=== PATIENT | male | born 1970 | race Caucasian/White ===

== ENCOUNTER 2018-04-20 02:05 | Emergency (ER) | payer BC ==
--- NOTE | 2018-04-20 02:51 | EDM.PDOC ---
ED HPI GENERAL MEDICAL PROBLEM - General Chief Complaint: Genitourinary Problem Stated Complaint: ENLARGED SCROTUM Time Seen by Provider: 04/20/18 02:33 - History of Present Illness INITIAL COMMENTS - FREE TEXT/NARRATIVE: HISTORY AND PHYSICAL: History of present illness: The patient is a 47-year-old male who presents for reevaluation of a firm area at the inferior aspect of the left hemiscrotum and increased scrotal swelling overall. Patient said he noticed this lump/nodular area and went to [facility] [facility] and they did not have ultrasound capabilities. He was placed on Cipro and Salt Flat for pain. He was advised that if the area continued swelling that he would need an ultrasound. The patient tells me that the hardened area/lump at the inferior aspect of the scrotum skin has not changed in size or discomfort but now he feels like the entire scrotal area is now swollen and more tender on the left side. He doesn't have any dysuria frequency or flank pain no suprapubic pain or abdominal pain no fevers chills nausea or vomiting. He does have a history of a mildly enlarged prostate for which she takes medications. He is unsure why he was placed on the Cipro by the provider into a yoga. Review of systems: As per history of present illness and below otherwise all systems reviewed and negative. Past medical history: As per history of present illness and as reviewed below otherwise noncontributory. Surgical history: As per history of present illness and as reviewed below otherwise noncontributory. Social history: No reported history of drug or alcohol abuse. Family history: As per history of present illness and as reviewed below otherwise noncontributory. Physical exam: General: Well-developed well-nourished overweight man who is nontoxic and moves easily in ED. Vital signs are noted by me HEENT: Atraumatic, normocephalic, negative for conjunctival pallor or scleral icterus, mucous membranes moist, throat clear, neck supple, nontender, trachea midline. Lungs: Clear to auscultation, breath sounds equal bilaterally, chest nontender. Heart: S1S2, regular rate and rhythm no overt murmurs Abdomen: Soft, nondistended, nontender. Negative for masses or hepatosplenomegaly. NABS Pelvis: Stable nontender. Genitourinary: There is no inguinal adenopathy or gross hernial defect appreciated and no tenderness in the inguinal area or suprapubic area. Testicles are descended bilaterally and there is a normal lie. Cremasteric reflexes intact bilaterally and there is symmetrical enlargement of the scrotum without lesions erythema or fluctuance. There is some mild tenderness at palpation of the inferior aspect of the left hemiscrotal skin and very inferiorly and posteriorly at the scrotal skin on the left side there is an ovoid area of firm nodular tissue appreciated without redness fluctuance or gross tenderness. There is no perianal tenderness or fluctuance or redness appreciated. There are no skin defects appreciated and there is no gross asymmetry of the entire anatomy. There was tenderness with palpation of the inferior aspect of the hemiscrotal skin and testicle but there are no testicular masses appreciated. Rectal: Deferred. Extremities: Atraumatic, full range of motion without defects or deficits Neurovascular unremarkable. Neuro: Awake, alert, oriented. Cranial nerves II through XII unremarkable. Cerebellum unremarkable. Motor and sensory unremarkable throughout. Exam nonfocal. Diagnostics: UA/testicular ultrasound with attention to the scrotal skin on the left Therapeutics: All testing results have been discussed with the patient and significant other at bedside. I've advised him to continue and finish the antibiotic that he has, Cipro. I've also advised close monitoring of the area and follow-up with urology. Impression: Soft tissue mass/cellulitis of scrotum on treatment Definitive disposition and diagnosis as appropriate pending reevaluation and review of above. perineal area Pain Score (Numeric/FACES): 5 - Related Data Allergies Allergy/AdvReac Type Severity Reaction Status Date / Time peanut Allergy Anaphylactic Verified 04/20/18 02:37 Shock Home Meds: Home Meds Albuterol [Ventolin HFA] 2 puff IH ASDIRECTED 04/20/18 [History] Ciprofloxacin HCl [Cipro] 500 mg PO BID 04/20/18 [History] Fluticasone/Salmeterol [Advair 100-50] 2 puff INH DAILY 04/20/18 [History] Hydrocodone/Acetaminophen [[place] 10-325 Tablet] 7.5 - 325 mg PO ASDIRECTED PRN 04/20/18 [History] Tamsulosin [Flomax] 0.4 mg PO DAILY 04/20/18 [History] ED ROS GENERAL - Review of Systems Review Of Systems: ROS reveals no pertinent complaints other than HPI. ED EXAM, GENERAL - Physical Exam Exam: See Below (See dictation) Course - Vital Signs Last Recorded V/S: Last Vital Signs Temp 36.4 C 04/20/18 02:32 Pulse 71 04/20/18 03:58 Resp 18 04/20/18 03:58 BP 137/83 04/20/18 03:58 Pulse Ox 94 L 04/20/18 03:58 - Orders/Labs/Meds Orders: Active Orders 24 hr Category Date Time Status Scrotal Duplex Ltd [US] Routine Exams 04/20/18 Taken Scrotum and Contents [US] Stat Exams 04/20/18 02:44 Taken Labs: Laboratory Tests 04/20/18 Range/Units 02:45 Urine Color YELLOW Urine Appearance CLEAR Urine pH 6.5 (5.0-8.0) Ur Specific [place] 1.010 (1.001-1.035) Urine Protein NEGATIVE (NEGATIVE) mg/dL Urine Glucose (UA) NEGATIVE (NEGATIVE) mg/dL Urine Ketones NEGATIVE (NEGATIVE) mg/dL Urine Occult Blood NEGATIVE (NEGATIVE) Urine Nitrite NEGATIVE (NEGATIVE) Urine Bilirubin NEGATIVE (NEGATIVE) Urine Urobilinogen 0.2 (<2.0) EU/dL Ur Leukocyte Esterase NEGATIVE (NEGATIVE) Urine RBC NONE SEEN (0-2/HPF) Urine WBC 1-2 (0-5/HPF) Ur Epithelial Cells NOT SEEN (NONE-FEW) Urine Bacteria RARE (NEGATIVE) Urine Mucus RARE (NONE-MOD) Departure - Departure Time of Disposition: 04:13 Disposition: Home, Self-Care 01 Condition: Good Clinical Impression: Scrotum swelling, Cellulitis of scrotum - Discharge Information Referrals: Carlitos Pete Jr, ANALISA [Primary Care Provider] - Forms: ED Department Discharge Additional Instructions: The following information is given to patients seen in the emergency department who are being discharged to home. This information is to outline your options for follow-up care. We provide all patients seen in our emergency department with a follow-up referral. The need for follow-up, as well as the timing and circumstances, are variable depending upon the specifics of your emergency department visit. If you don't have a primary care physician on staff, we will provide you with a referral. We always advise you to contact your personal physician following an emergency department visit to inform them of the circumstance of the visit and for follow-up with them and/or the need for any referrals to a consulting specialist. The emergency department will also refer you to a specialist when appropriate. This referral assures that you have the opportunity for followup care with a specialist. All of these measure are taken in an effort to provide you with optimal care, which includes your followup. Under all circumstances we always encourage you to contact your private physician who remains a resource for coordinating your care. When calling for followup care, please make the office aware that this follow-up is from your recent emergency room visit. If for any reason you are refused follow-up, please contact the [facility] emergency department at and ask to speak to the emergency department charge nurse. [facility] [address] [place] [address] Continue and finish the anorexia you have, Cipro, and use [id number] ibuprofen/Motrin as well as the Salt [place] you have for pain management. Continue to monitor the area and try to not irritate or manipulate the swelling. Please call and schedule a follow-up with our urologist on Saturday and return to ER as needed and as discussed. - My Orders Last 24 Hours: My Active Orders 04/20/18 Scrotal Duplex Ltd [US] Routine 04/20/18 02:44 Scrotum and Contents [US] Stat - Assessment/Plan Last 24 Hours: My Active Orders 04/20/18 Scrotal Duplex Ltd [US] Routine 04/20/18 02:44 Scrotum and Contents [US] Stat
--- NOTE | 2018-04-21 15:06 | US ---
EXAM DATE: 04/20/18 PATIENT'S AGE: 47 Patient: LIN ASHLEY Facility: [place], [place] Site . Site : 1970 Study: US Testicle [id number]/7/2018 3:53:44 AM Ordering Physician: Tl Whiteside Final Report: INDICATION: Hard lump in the posterior left scrotum that has increased in size for the past 2 days. Patient has been on antibiotics for under 2 days. COMPARISON: None available. FINDINGS: Ultrasound examination of the testes was performed with a high-resolution linear transducer. The testes are normal in appearance, with smooth margins and uniform internal echogenicity. There is normal color Doppler flow. The right testis measures 4.5 x 3.3 x 2.4 cm and the left measures 4.5 x 3.1 x 2.6 cm The epididymal heads are normal in appearance. There is no sign of hydrocele. No extra-testicular masses are seen within the scrotal sac. The area of palpable abnormality corresponds to a hypoechoic soft tissue mass located within the subcutaneous tissues of the posterior scrotum measuring 3.4 x 1.7 by 1.7 centimeters. This has slightly increased color Doppler flow. There is no sign of any fluid collection within this structure or adjacent to it. The findings are nonspecific. This could be an area of cellulitis without abscess formation. A soft tissue malignancy such as a carcinoma of the skin cannot be excluded, but this would not be expected to increase in size suddenly. IMPRESSION: PALPABLE ABNORMALITY IS SEEN TO CORRESPOND TO A SOLID, HYPOECHOIC SOFT TISSUE MASS MEASURING UP TO 3.4 CENTIMETERS, WITH MILDLY INCREASED COLOR DOPPLER FLOW. THE APPEARANCE IS NONSPECIFIC, BUT COULD REPRESENT CELLULITIS WITHOUT ABSCESS FORMATION. SKIN MALIGNANCY CANNOT BE ENTIRELY EXCLUDED, BUT THIS WOULD NOT BE EXPECTED TO INCREASE IN SIZE RAPIDLY. NORMAL ULTRASOUND EXAMINATION OF THE TESTES. Dictated by Michael Gomez MD @ Apr 20 2018 3:54AM (Electronic Signature) Report Signed by Proxy. VIKTORIA
--- NOTE | 2018-04-21 15:07 | US ---
EXAM DATE: 04/20/18 PATIENT'S AGE: 47 Patient: LIN ASHLEY Facility: [place], [place] Site . Site : 1970 Study: US Testicle [id number]/7/[id number] 3:53:44 AM Ordering Physician: Tl Whiteside Final Report: INDICATION: Hard lump in the posterior left scrotum that has increased in size for the past 2 days. Patient has been on antibiotics for under 2 days. COMPARISON: None available. FINDINGS: Ultrasound examination of the testes was performed with a high-resolution linear transducer. The testes are normal in appearance, with smooth margins and uniform internal echogenicity. There is normal color Doppler flow. The right testis measures 4.5 x 3.3 x 2.4 cm and the left measures 4.5 x 3.1 x 2.6 cm The epididymal heads are normal in appearance. There is no sign of hydrocele. No extra-testicular masses are seen within the scrotal sac. The area of palpable abnormality corresponds to a hypoechoic soft tissue mass located within the subcutaneous tissues of the posterior scrotum measuring 3.4 x 1.7 by 1.7 centimeters. This has slightly increased color Doppler flow. There is no sign of any fluid collection within this structure or adjacent to it. The findings are nonspecific. This could be an area of cellulitis without abscess formation. A soft tissue malignancy such as a carcinoma of the skin cannot be excluded, but this would not be expected to increase in size suddenly. IMPRESSION: PALPABLE ABNORMALITY IS SEEN TO CORRESPOND TO A SOLID, HYPOECHOIC SOFT TISSUE MASS MEASURING UP TO 3.4 CENTIMETERS, WITH MILDLY INCREASED COLOR DOPPLER FLOW. THE APPEARANCE IS NONSPECIFIC, BUT COULD REPRESENT CELLULITIS WITHOUT ABSCESS FORMATION. SKIN MALIGNANCY CANNOT BE ENTIRELY EXCLUDED, BUT THIS WOULD NOT BE EXPECTED TO INCREASE IN SIZE RAPIDLY. NORMAL ULTRASOUND EXAMINATION OF THE TESTES. Dictated by Michael Gomez MD @ Apr 20 2018 3:54AM (Electronic Signature) Report Signed by Proxy. VIKTORIA
== END 2018-04-20 04:30 | disposition home or self-care (01) ==
LOC: MW.ED 02:05
DX: N49.2 Inflammatory disorders of scrotum (principal); F17.210 Nicotine dependence, cigarettes, uncomplicated; Z91.010 Allergy to peanuts
CPT/HCPCS: 76870; 76870-26; 81001; 93976; 93976-26; 99283; 99284-25